=== PATIENT | male | born 1950 | race Caucasian/White ===

== ENCOUNTER 2017-12-13 07:30 | Inpatient (IN) | payer OTHER ==
[~2017-12-13] VITALS: Ht 170.2 cm; Wt 79.4 kg
[2017-12-13] MEDS ORDERED: LIPITOR40 MG PO (08:18)
== END 2017-12-25 14:03 | disposition home or self-care (01) | DRG 707 ==
LOC: O/R 12-20 05:54 → SURH 12-20 05:54
PROVIDERS: Urology
PROC: 0VT00ZZ Resection of Prostate, Open Approach (ICD-10-PCS; principal; 2017-12-20 07:00)
PROC: BW21ZZZ Computerized Tomography (CT Scan) of Abdomen and Pelvis (ICD-10-PCS; 2017-12-23)
DX: C61 Malignant neoplasm of prostate (principal); K91.30 Postprocedural intestinal obstruction, unspecified as to partial versus complete